=== PATIENT | female | born 1955 | race Caucasian/White ===

== ENCOUNTER 2019-06-03 16:01 | Emergency (ER) | payer BC ==
[~2019-06-03] VITALS: Ht 167.6 cm; Wt 113.6 kg
[2019-06-03 16:44] LABS: BASOPHILS % (AUTO) 0.8 % (0-1); EOSINOPHILS # (AUTO) 0.1 X10'3 (0-0.9); EOSINOPHILS % (AUTO) 1.7 % (0-6); HEMATOCRIT 41.9 % (35.0-45.0); HEMOGLOBIN 14.5 g/dl (12.0-16.0); LYMPHOCYTES # (AUTO) 2.1 X10'3 (1.1-4.8); LYMPHOCYTES % (AUTO) 46.2 % (21-51); MEAN CORPUSCULAR HEMOGLOBIN 31.6 PG (27.0-31.0); MEAN CORPUSCULAR HGB CONC 34.6 g/dL (33.0-36.5); MEAN CORPUSCULAR VOLUME 91.3 FL (78-98); MEAN PLATELET VOLUME 9.3 FL (7.4-10.4); MONOCYTES # (AUTO) 0.4 X10'3 (0-0.9); MONOCYTES % (AUTO) 7.8 % (2-12); NEUTROPHILS % (AUTO) 43.5 % (42-75); PLATELET COUNT 227 X10'3 (140-440); RED BLOOD COUNT 4.59 X10'6 (4.20-5.60); RED CELL DISTRIBUTION WIDTH 13.6 % (11.5-14.5); WHITE BLOOD COUNT 4.5 X10'3 (4.5-11.0)
[2019-06-03 16:58] LABS: PARTIAL THROMBOPLASTIN TIME 28 SECONDS (22-32)
[2019-06-03 17:00] LABS: ALANINE AMINOTRANSFERASE 25 U/L (12-78); ALBUMIN 3.9 G/DL (3.4-5.0); ALKALINE PHOSPHATASE 79 IU/L (46-116); ANION GAP 9 (8-16); ASPARTATE AMINO TRANSFERASE 13 U/L (10-37); BILIRUBIN,TOTAL 0.3 MG/DL (0.1-1.0); BLOOD UREA NITROGEN 10 MG/DL (7-18); BUN/CREATININE RATIO 11.5 (6.6-38.0); CALCIUM 9.5 MG/DL (8.5-10.1); CHLORIDE 108 MMOL/L (99-107); CREATININE 0.87 MG/DL (0.40-0.90); GLUCOSE 98 MG/DL (70-104); POTASSIUM 3.8 MMOL/L (3.5-5.1); SODIUM 144 MMOL/L (135-145); TOTAL CARBON DIOXIDE 27.4 MMOL/L (24-32); TOTAL PROTEIN 7.7 G/DL (6.4-8.2); eGFR 66 ML/MIN
[2019-06-03] MEDS ORDERED: acetaminophen 325mg tablet PO ONE (18:00)
[2019-06-03] MEDS ORDERED: aspirin 325mg tablet PO ONE (18:00)
[2019-06-03] MEDS ORDERED: iohexol 350MG/ML 100ml bottle IV ONE (18:06)
--- NOTE | 2019-06-03 18:09 | NUR ---
PATIENT TO CT
[2019-06-03] MEDS ORDERED: normal saline 1000ml 1,000 ML IV ONE (18:25)
[2019-06-03] MEDS ORDERED: aspirin 81mg tablet.DR PO ONE (18:50)
[2019-06-03] MEDS ORDERED: HYDROcodone/acetaminophen 5mg/325mg tablet PO ONE (19:00)
[2019-06-03] MEDS ORDERED: ondansetron/PF 4mg/2ml inj IV ONE (19:00)
--- NOTE | 2019-06-03 19:08 | NUR ---
pt given asprin, tylenol and 1 liter ns bolus started. at bedside. pt with stable vs. pain 5 out of 10 to upper mid back that is "right behind my heart and lungs".
[2019-06-03 19:43] LABS: CLARITY,URINE CLEAR (Clear); COLOR,URINE STRAW (Yellow); GLUCOSE, URINE NEGATIVE (Neg); KETONES,URINE NEGATIVE (Neg); LEUKOCYTE ESTERASE ,URINE NEGATIVE (Neg); NITRITES, URINE NEGATIVE (Neg); OCCULT BLOOD,URINE NEGATIVE (Neg); PROTEIN,URINE NEGATIVE (Neg); UROBILINOGEN,URINE 0.2 E.U/dL (0.2-1.0)
[2019-06-03 19:46] LABS: UA COLLECTION TYPE VOIDED
[2019-06-03] MEDS ORDERED: HYDR-3965 PO (20:16)
[2019-06-03 20:34] VITALS: BP 160/75
== END 2019-06-03 20:43 | disposition home or self-care (01) ==
LOC: ER 16:03
DX: R07.89 Other chest pain (principal); R07.81 Pleurodynia; R00.2 Palpitations; R06.02 Shortness of breath; M79.669 Pain in unspecified lower leg; Z79.899 Other long term (current) drug therapy
CPT/HCPCS: 36415; 71046; 71260; 80053; 81003; 84484; 85025; 85610; 85730; 93005; 96374; 99284; J2405; J7030; Q9967